=== PATIENT | female | born 1980 | race Caucasian/White ===

== ENCOUNTER → 2017-04-05 | Outpatient (CLI) | payer OTHER ==
--- NOTE | 2017-04-05 16:08 | RADIOLOGY REPORT (SQ) ---
EXAM DESCRIPTION: MRI CERVICAL SPINE WITHOUT COMPLETED DATE/TIME: 04/05/2017 10:54 am REASON FOR STUDY: OTHER CERVICAL DISC DEGENERATION (M50.30) M50.30 OTHER CERVICAL DISC DEGENERATION , UNSP CERVICAL REGIO COMPARISON: None. TECHNIQUE: Sagittal and Axial imaging includes T1, T2, STIR and gradient echo sequences. LIMITATIONS: None. FINDINGS: ALIGNMENT: Normal. VERTEBRAE: Intact. BONE MARROW: Normal. No marrow replacement or reactive changes. DISCS: Diffuse decreased T2 weighted intervertebral disc signal. HARDWARE: None in the spine. CORD AND BASE OF BRAIN: Normal in size and signal intensity. SOFT TISSUES: No soft tissue masses. C1-C2: No significant spinal stenosis. C2-C3: No significant spinal stenosis or exit foraminal stenosis. C3-C4: Tiny central posterior disc protrusion without significant central or foraminal encroachment C4-C5: Tiny central posterior disc protrusion without significant central or foraminal encroachment. C5-C6: Minimal posterior disc bulging is present without significant central or foraminal encroachmen t. C6-C7: No significant spinal stenosis or exit foraminal stenosis. C7-T1: No significant spinal stenosis or exit foraminal stenosis. There is moderate bilateral facet arthropathy. UPPER THORACIC: Incompletely imaged. No significant spinal stenosis or exit foraminal stenosis. OTHER: No other significant finding. IMPRESSION: No high-grade central or foraminal stenosis. Mild multilevel degenerative changes TECHNICAL DOCUMENTATION: JOB ID: [id number] [email or web address]- All Rights Reserved
== END ==
LOC: RAD 09:58
PROVIDERS: ATTEND Orthopaedic Surgery Sports Medicine
DX: M50.30 Other cervical disc degeneration, unspecified cervical region (principal)
CPT/HCPCS: 72141